=== PATIENT | female | born 1975 | race Caucasian/White ===

== ENCOUNTER → 2016-09-30 | Outpatient (CLI) | payer OTHER | END | disposition home or self-care (01) | LOC: LABWHC1 12:42 | PROVIDERS: ATTEND Nurse Practitioner Acute Care | DX: E55.9 Vitamin D deficiency, unspecified (principal) | CPT/HCPCS: 36415; 82306 ==

== ENCOUNTER → 2020-10-24 | Outpatient (CLI) | payer BC, OTHER ==
--- NOTE | 2020-10-24 17:01 | XR ---
Left hand HISTORY: Pain and swelling for 2 weeks 3 views the left hand Bone mineralization, joint spaces and alignment are maintained. Soft tissue swelling noted at the fou rth digit of left hand. No fracture or dislocation. IMPRESSION: Soft tissue swelling.
== END | disposition home or self-care (01) ==
LOC: RADXRMAIN 16:28
PROVIDERS: ATTEND Family Medicine
DX: M79.645 Pain in left finger(s) (principal); M79.642 Pain in left hand; M79.89 Other specified soft tissue disorders

== ENCOUNTER → 2022-03-04 | Outpatient (CLI) | payer BC ==
--- NOTE | 2022-03-05 08:48 | MM ---
Reason for Exam: Screening (asymptomatic). Last mammogram was performed 3 year(s) and 0 month(s) ago. Patient History: Menarche at age 12. First Full-Term at age 19. Risk Values: Lizbeth 5 year model risk: 0.6%. NCI Lifetime model risk: 7.7%. Prior Study Comparison: 03/28/2014 Bilateral MG screening mammo w CAD - 2, [facility]. 01/20/2019 Bilateral MG 3D diag mammo wo cad ISIDRO, [facility]. Tissue Density: The breast tissue is extremely dense which could obscure a lesion on mammography. Findings: Analyzed By CAD. There is a nodularity within the upper outer aspect right breast correlating with CAD. There is been interval change from 2019. Additional workup of the right breast recommended with compression views craniocaudal and mediolateral views as well as standard right mediolateral view. It should be performed 3-D. Left breast appears stable. No suspicious spiculated or lobulated mass cluster microcalcifications architectural distortion or other secondary signs of malignancy radiographically apparent. Overall Assessment: Incomplete: need additional imaging evaluation, BI-RAD 0 Management: Diagnostic Mammogram of the right breast. A negative mammogram report should not preclude additional follow up of suspicious palpable abnormalities. Patient should continue monthly self breast exam. A clinical breast exam by your physician is recommended on an annual basis and results should be correlated with mammographic findings. Electronically signed and approved by: Manuel Noonan D.O. Radiologis
== END | disposition home or self-care (01) ==
LOC: RADMAMWWP 15:02
PROVIDERS: ATTEND Family Medicine
DX: Z12.31 Encounter for screening mammogram for malignant neoplasm of breast (principal)
CPT/HCPCS: 77067

== ENCOUNTER → 2022-03-10 | Outpatient (CLI) | payer BC ==
--- NOTE | 2022-03-12 10:45 | MM ---
Reason for Exam: Additional evaluation requested from abnormal screening. Last screening mammogram was performed less than 1 month ago. Patient History: Menarche at age 12. First Full-Term at age 19. Risk Values: Lizbeth 5 year model risk: 0.6%. NCI Lifetime model risk: 7.7%. Prior Study Comparison: 03/28/2014 Bilateral MG screening mammo w CAD - 2, [facility]. 01/20/2019 Bilateral MG 3D diag mammo wo cad ISIDRO, [facility]. 03/04/2022 Bilateral MG screening mammo w CAD, [facility]. Tissue Density: Right: The breast tissue is heterogeneously dense. This may lower the sensitivity of mammography. Findings: Analyzed By CAD. Under impression no persistent suspicious spiculated or lobular mass is evident. Breast tissue appears to disperse normally. Precautionary follow up is recommended. Overall Assessment: Probably benign, BI-RAD 3 Management: Diagnostic Mammogram of the right breast in 6 months. A clinical breast exam by your physician is recommended on an annual basis and results should be correlated with mammographic findings. This exam should not preclude additional follow-up of suspicious palpable abnormalities. Results were given to the patient verbally at the time of exam. Electronically signed and approved by: Manuel Noonan D.O. Radiologis
== END | disposition home or self-care (01) ==
LOC: RADMAMWWP 08:39
PROVIDERS: ATTEND Family Medicine
DX: R92.8 Other abnormal and inconclusive findings on diagnostic imaging of breast (principal)
CPT/HCPCS: 77065